=== PATIENT | female | born 1960 | race Caucasian/White ===

== ENCOUNTER → 2016-10-31 | Day surgery (SDC) | payer OTHER ==
[~2016-10-31] VITALS: Ht 147.3 cm; Wt 77.1 kg
[~2016-10-31] MED LIST: SERTRALINE HCL25 MG PO; SYNTHROID; [UNRECOGNIZED DRUG - OTHER]
--- NOTE | 2016-10-31 14:43 | Operative Report ---
Operative/Inv Procedure Report Surgery Date: 10/31/16 Name of Procedure: left renal ESWL. fluoroscopy Pre-Operative Diagnosis: bilateral stones: left renal colic Post-Operative Diagnosis: same Estimated Blood Loss: none Surgeon/Sign Language Interpreter: JARED EDWARDS MD Anesthesia: moderate sedation Drains: none Specimens: none Complications: none Operative/Procedure Note Note: The patient was taken to the operating room and placed on the ESWL table in supine position. With the patient awake and participating, timeout was performed to confirm correct identity, procedure, laterality, anesthesia, and other pertinent leidy-operative information. After adequate anesthesia, the patient was positioned so that the patient's left flank was positioned over the table cut-out, overlying the dome of the treatment head. Once the patient was adequately sedated, fluoroscopy, as well as Renal ultrasound was used to locate the LEFT renal stone. Renal US confirmed the presence of the stone cluster which measured it to be approximately 10 mm in the mid-pole of the left kidney. The stone was visible with fluoroscopy. Renal US revealed, no hydronephrosis, and no solid tumor, and presence of the stones. The position of the stones were optimized by using fluoroscopy in AP and oblique views;placing the stones within the ESWL c-arm crosshairs. Once the stone's position was optimized, the LEFT renal E.S.W.L. was initiated at low energy level. After noting the patient's tolerance to the shockwaves, the intensitiy was ramped up to maximum level. At the end of the procedure, the left renal stone cluster had significantly dissintegrated. Of note, a total of 2500 shockwaves were delivered to the stone cluster. The patient tolerated the procedure well, and was taken to the recovery room in satisfactory condition. She is discharged home with Percocet for pain on a when necessary basis, and with instructions to strain her urine for stone fragment. Additionally she is to follow up in 2-4 weeks time after repeat renal ultrasound and KUB with requisition given to the patient. Findings: cluster of stones with 10mm burden;no hydro. Discharge Disposition: Same Day Admissions CC: JARED EDWARDS MD
== END ==
LOC: STS 03:39
DX: N20.0 Calculus of kidney (principal); I10 Essential (primary) hypertension; E03.9 Hypothyroidism, unspecified
CPT/HCPCS: 36415; J2250